=== PATIENT | female | born 1960 | race Caucasian/White ===

== ENCOUNTER → 2016-02-25 | Outpatient (CLI) | payer OTHER | LOC: YCFC.O 10:17 | PROVIDERS: ATTEND Nurse Practitioner Family | DX: I10 Essential (primary) hypertension (principal); E78.2 Mixed hyperlipidemia; K21.9 Gastro-esophageal reflux disease without esophagitis ==

== ENCOUNTER → 2016-03-06 | Outpatient (CLI) | payer OTHER ==
--- NOTE | 2016-03-06 13:15 | RAD ---
EXAM DESCRIPTION: XR CHEST 2 VIEWS CLINICAL HISTORY: 55 y/o F, SOB, FEVER, COUGH COMPARISON: 2012. FINDINGS: PA and lateral views are obtained. Normal cardiomediastinal contour. No pulmonary infiltrate or effusion. Mild diffuse osteopenia with degenerative changes thoracic spine. Surgical changes upper abdomen. IMPRESSION: No active process in the chest. Electronically signed by: Tracy Payne 03/06/2016 13:13
== END ==
LOC: RAD 10:51
PROVIDERS: ATTEND Nurse Practitioner Family
DX: R06.00 Dyspnea, unspecified (principal); R50.9 Fever, unspecified; R05 Cough

== ENCOUNTER → 2016-05-23 | Outpatient (CLI) | payer OTHER ==
--- NOTE | 2016-05-24 14:08 | RAD ---
EXAM DESCRIPTION: Lumbar Spine 5 Views CLINICAL HISTORY: RADICULOPATHY COMPARISON: None. TECHNIQUE: AP Lateral images lumbar spine. Lateral oblique images Spot-lateral radiograph of the lumbar sacral junction. FINDINGS: Lumbar type vertebra: Five. Transitional vertebrae: None. Disk spaces: Narrowing L5-S1 and endplate ridging. Facet joints: Degenerative changes bilateral L5-S1. Compression deformities: None. Bone Density: Moderately decreased. Alignment: Grade 1 anterolisthesis L5-S1. Oblique: Spondylolysis left L5 pars. Abdomen: Constipation. No gas-filled distended loops. IMPRESSION: Overall bone density is moderately decreased but no compression deformities of the vertebral bodies. Left L5 pars spondylolysis. Grade 1 anterolisthesis L5-S1 with spondylosis of the endplates.. Electronically signed by: Nehemias Joy MD 05/24/2016 2:07 PM CDT
== END | disposition home or self-care (01) ==
LOC: RAD 10:49
PROVIDERS: ATTEND Nurse Practitioner Family
DX: M54.17 Radiculopathy, lumbosacral region (principal)

== ENCOUNTER 2016-06-20 10:39 | Emergency (ER) | payer OTHER ==
[2016-06-20 10:52] VITALS: TEMP 98.2
[2016-06-20] MEDS ORDERED: CYCLOBENZAPRINE HCL 5 MG TAB PO ONE (10:58)
--- NOTE | 2016-06-20 11:02 | ED.PDOC ---
History of Present Illness - General Chief Complaint: Back Pain or Injury Stated Complaint: back pain Time Seen by Provider: 06/20/16 10:49 Source: patient, RN notes reviewed, Vital Signs reviewed - History of Present Illness Initial Comments: Patient reports that yesterday she was going up 2 steps into her living room when her L knee gave out and she fell backwards landing on her back on a bunch of toys. Her helped her to her bed and she just laid in bed all day yesterday due to the pain. She took some arthritis medication yesterday but nothing today. No numbness, tingling or weakness. Pain is in her mid, right back that is worse with movement. Timing/Duration: 7-24 hours Quality/Severity: moderate, sharpness Back Pain Location: T-spine, paraspinous muscles Back Pain Radiation: other - None Method of Injury/Prior Injury: fell Improving Factors: rest Worsening Factors: movement Associated Symptoms: muscle spasms Allergies/Adverse Reactions: Allergies Latex Allergy (Unverified 02/10/13 08:24) Home Medications: Ambulatory Orders Aspirin [Aspirin 81] 81 mg PO DAILY 02/07/13 Duloxetine HCl [Cymbalta] 60 mg PO BID 02/07/13 Famotidine 20 mg PO BID 02/07/13 Lisinopril 20 mg PO DAILY 02/07/13 Zolpidem Tartrate 10 mg PO DAILY 02/07/13 cloNAZepam [Klonopin] 0.5 mg PO BID 02/07/13 Acetaminophen W/ Codeine [Tylenol W/ CODEINE #3] 1 ea PO Q6HR PRN #20 06/20/16 Amoxicillin [Amoxil] 500 mg PO Q8H 06/20/16 Atorvastatin Calcium [Lipitor] 80 mg PO DAILY 06/20/16 Cyclobenzaprine HCl [Flexeril] 5 mg PO Q8HR #15 tab 06/20/16 Misc. Devices [Walker/Adult/Folding/Doub] 1 mis XX DAILY #1 mis 06/20/16 Potassium Chloride [K-Tab] 8 meq PO BEDTIME 06/20/16 Review of Systems - Review of Systems Constitutional: States: no symptoms reported Respiratory: States: no symptoms reported Cardiology: States: no symptoms reported Gastrointestinal/Abdominal: States: no symptoms reported. Denies: diarrhea, nausea, vomiting Genitourinary: States: no symptoms reported. Denies: hematuria, pain Musculoskeletal: States: back pain, muscle pain. Denies: neck pain Skin: States: no symptoms reported Neurological: States: no symptoms reported, pre-existing deficit. Denies: headache, numbness, paresthesia, tingling, tremors, weakness Past Medical History (General) - Patient Medical History Hx Stroke: Yes Hx Congestive Heart Failure: No Hx Diabetes: No Surgical History: cholecystectomy, Hysterectomy - Vaccination History Hx Influenza Vaccination: No Hx Pneumococcal Vaccination: No - Social History Hx Tobacco Use: Yes Family Medical History - Family History Mother Family History: Unknown Living Status: Unknown Physical Exam - Physical Exam General Appearance: Alert, No apparent distress, Well Developed, Well Groomed, Well Hydrated, Well Nourished, Other - uncomfortable Neck Exam: full range of motion Peripheral Pulses: dorsalis pedis,right: 2+, dorsalis pedis,left: 2+ Back Exam: no CVA tenderness, muscle spasm - R mid back, vertebral tenderness - mid thoracic Extremity Exam: no evidence of injury, normal range of motion, non-tender, no pedal edema Neurologic: no motor/sensory deficits, alert, normal mood/affect, oriented x 3 Skin Exam: normal color, warm/dry Progress - Progress Progress: 06/20/16 14:20 Patient with acute L1 compression fracture. Discussed with Dr. Isaac. Will d/c home with walker and pain medications. She has been comfortable here since receiving [place] and Flexeril. Discussed with patient and she agrees with plan. - EKG/XRAY/CT XRAY: T spine: ? new L1 compression fx. Will get CT CT Ordered: Yes - acute L1 compression fracture Departure - Departure Clinical Impression: Closed compression fracture of first lumbar vertebra Time of Disposition: 14:24 Disposition: Discharge to Home or Self Care Condition: Fair Departure Forms: ED Discharge - Pt. Copy, Patient Portal Self Enrollment Instructions: Vertebral Compression Fracture Diet: resume usual diet Activity: ambulate only with walker Referrals: Kymberly Sibley FNP [Primary Care Provider] - 1-2 Weeks Medhat Isaac MD [Active Staff] - 1-2 Weeks Prescriptions: Acetaminophen W/ Codeine [Tylenol W/ CODEINE #3] 1 ea PO Q6HR PRN #20 PRN Reason: Moderate To Severe Pain Cyclobenzaprine HCl [Flexeril] 5 mg PO Q8HR #15 tab Misc. Devices [Walker/Adult/Folding/Doub] 1 mis XX DAILY #1 mis Home Medications: Ambulatory Orders Aspirin [Aspirin 81] 81 mg PO DAILY 02/07/13 Duloxetine HCl [Cymbalta] 60 mg PO BID 02/07/13 Famotidine 20 mg PO BID 02/07/13 Lisinopril 20 mg PO DAILY 02/07/13 Zolpidem Tartrate 10 mg PO DAILY 02/07/13 cloNAZepam [Klonopin] 0.5 mg PO BID 02/07/13 Acetaminophen W/ Codeine [Tylenol W/ CODEINE #3] 1 ea PO Q6HR PRN #20 06/20/16 Amoxicillin [Amoxil] 500 mg PO Q8H 06/20/16 Atorvastatin Calcium [Lipitor] 80 mg PO DAILY 06/20/16 Cyclobenzaprine HCl [Flexeril] 5 mg PO Q8HR #15 tab 06/20/16 Misc. Devices [Walker/Adult/Folding/Doub] 1 mis XX DAILY #1 mis 06/20/16 Potassium Chloride [K-Tab] 8 meq PO BEDTIME 06/20/16
[2016-06-20] MEDS ORDERED: ONDANSETRON ODT 8 MG TAB SL ONE (11:27)
--- NOTE | 2016-06-20 11:31 | RAD ---
EXAM DESCRIPTION: Thoracic Spine,AP Lateral CLINICAL HISTORY: 55 years Female, Pain s/p fall yesterdat COMPARISON: Lumbar spine series May 23, 2016 FINDINGS: 3 views of the thoracic spine show prominent anterior compression of a single vertebral body near the thoracal lumbar junction, probably L1. This is new from May 23, 2016. Mild degenerative changes are noted at multiple levels in the thoracic spine, but no additional compression deformity is seen. There is no posterior rib fracture. IMPRESSION: Compression deformity of a single vertebral body near the thoracolumbar junction, probably L1. This is new from May 23, 2016. If clinically suspicious of acute compression fracture, CT or MRI is suggested. Electronically signed by: Nabil Durant MD 06/20/2016 11:30 AM CDT
[2016-06-20] MEDS ORDERED: HYDROcodone 7.5MG/APAP 325MG 1 EA TAB PO ONE (11:39)
--- NOTE | 2016-06-20 12:14 | CT ---
EXAM DESCRIPTION: Lumbar Spine CLINICAL HISTORY: ? new compression fx L1 on x-ray COMPARISON: May 23, 2016 TECHNIQUE: CT of the lumbar spine was performed without contrast. Multiple axial images and multiplanar reconstructions were generated. This exam was performed according to our department minimal dose optimization program which includes automated exposure control, adjustment of mA and/or kV according to patient size and/or use of iterative reconstructed techniques. FINDINGS: When compared to the plain film from May 2016 there is been interval development of a moderate compression fracture of L1. The fracture line extends through both the superior and inferior endplates in the coronal plane. There is minimal retropulsion of the posterior superior corner of L1 into the spinal canal. The AP diameter of the spinal canal at this level is adequate at 12 mm. The vertebral body heights from L2 through L5 are unremarkable. There is no spinal canal narrowing at any level. There is no neuroforaminal narrowing at any level. No aneurysm of the abdominal aorta. Patient is status post cholecystectomy. IMPRESSION: 1. Today's exam demonstrates an acute moderate compression fracture of L1 with retropulsion into the spinal canal. The retropulsed superior posterior corner of L1 decreases the AP diameter of the spinal canal to an unremarkable 12 mm. 2. No spinal canal narrowing or neuroforaminal narrowing at any level on today's exam. Electronically signed by: Manuel Monroy MD 06/20/2016 12:13 PM CDT
[2016-06-20 14:05] VITALS: BP 145/60
[2016-06-20 15:33] VITALS: O2SAT 95
== END 2016-06-20 15:05 | disposition home or self-care (01) ==
LOC: ER 10:39
DX: S32.019A Unspecified fracture of first lumbar vertebra, initial encounter for closed fracture (principal); Z91.040 Latex allergy status; Z79.82 Long term (current) use of aspirin; Z79.899 Other long term (current) drug therapy; Z87.891 Personal history of nicotine dependence; Z86.73 Personal history of transient ischemic attack (TIA), and cerebral infarction without residual deficits; W10.9XXA Fall (on) (from) unspecified stairs and steps, initial encounter; Y92.008 Other place in unspecified non-institutional (private) residence as the place of occurrence of the external cause

== ENCOUNTER → 2016-12-01 | Outpatient (CLI) | payer OTHER ==
--- NOTE | 2016-12-02 10:14 | MRI ---
EXAM DESCRIPTION: Lumbar Spine w/o Contrast CLINICAL HISTORY: FRACTURE COMPARISON: CT scan lumbar spine 06/20/2016. TECHNIQUE: Multiplanar, multiple standard sequences, non contrast MRI, lumbar spine. FINDINGS: Compression fracture has progressed at L1 greater than 75% centrally. Edema diffusely in the vertebral body extending into the bilateral pedicles. Anteropulsion of the anterior vertebral body. Posterior retropulsion 6 mm abutting the cord just above the conus which terminates at L1 -2. Moderate canal narrowing. Bilateral T12-L1 foramina are patent, minimal desiccation of the disc which is expanding into the vertebral body defect. No canal stenosis at this interspace. L1-2 disc with minimal desiccation. Tiny posterior bulge. Posterior elements unremarkable. Canal and foramina are patent. L5-S1: Disc desiccation. Disc space maintained. Tiny posterior bulge. Minimal hypertrophic changes of the bilateral facets. Trace anterolisthesis. Mild bilateral foraminal narrowing, more on the right. Canal is patent. Modic type II anterior inferior L5 endplate reaction, and the right side disc space endplates. L4-5: Disc space is maintained. Minimal desiccation. Bilateral foramina are patent. Minimal hypertrophy of the flavum ligaments. Canal is patent. Anterior well-circumscribed lesion L4 vertebral body right T1 and T2 sequences. L3-4: Disc space maintained. Minimal desiccation. Trace posterior bulge. Posterior elements unremarkable. Canal and foramina are patent. L2-3: Disc space maintained. Minimal disc desiccation. Posterior midline and left paracentral 4 mm bulge with no impingement. Bilateral foramina are patent. Anterior superior L3 endplate Modic type II reaction. Minimal hypertrophy of the flavum ligaments and facets. Mild canal narrowing. Paravertebral soft tissues show muscle atrophy with no mass.. Normal marrow signal in the remaining vertebral bodies and the posterior elements. Vertebral bodies are not compressed at any level. IMPRESSION: 1. L1 compression fracture has progressed now greater than 75% centrally. Marrow edema throughout the vertebral body and in the bilateral pedicles with no posterior instability. Retropulsion into the canal of the upper mid vertebral body cortex has increased to 6 mm, abutting the cord just above the conus. No compression. 2. Desiccation of discs at multiple levels with no significant bulging or herniation. No canal or foraminal stenosis at other levels. 3. Spondylosis at multiple levels. 4. Anterior L4 vertebral body hemangioma stable since the CT scan. CRITICAL COMMUNICATION: The critical value was discussed directly by phone with MICHAEL Busch, at approximately 1005 hours, on December 02, 2016. Electronically signed by: Nehemias Joy MD 12/02/2016 10:12 AM CDT
== END ==
LOC: MRI 17:09
PROVIDERS: ATTEND Nurse Practitioner Family
DX: M48.56XA Collapsed vertebra, not elsewhere classified, lumbar region, initial encounter for fracture (principal); M47.9 Spondylosis, unspecified; D18.09 Hemangioma of other sites

== ENCOUNTER → 2017-04-15 | Outpatient (CLI) | payer OTHER ==
--- NOTE | 2017-04-16 08:41 | MRI ---
EXAM DESCRIPTION: Lumbar Spine w/o Contrast MRI. CLINICAL HISTORY: COMPRESSION FX OF FIRST LUMBAR VERTEBRA WITH DELAYED HEALING COMPARISON: Lumbar spine 12/01/2016. TECHNIQUE: Multiplanar, multiple standard sequences, non contrast MRI, lumbar spine. FINDINGS: L1 compression fracture again noted with edema-like signal in the bilateral pedicles. Retropulsion of the superior endplate almost 5 mm abutting the distal cord which terminates at L1-L2. Anterior portion almost 6 mm. The compression centrally is approximately 75 %. Desiccation of the T12-L1 disc but no bulging. Bilateral foramina are patent. L1-2 disc desiccation with no significant bulging. Bilateral foramina are patent. No significant canal narrowing. L5-S1: Minimal disc desiccation with no bulging. Moderate right foraminal narrowing. Anterior Modic type II endplate reactive changes on the inferior L5 endplate. Facets and flavum ligaments are unremarkable. L4-5: Minimal disc desiccation. No significant bulging. Canal and foramina are patent. Minimal flavum ligament hypertrophy, facets negative. Well-circumscribed bright T1 and T2 signal in the anterior L4 vertebral body stable since the prior study. L3-4: Minimal disc desiccation. No significant bulging. Canal and foramina are patent. Flavum ligaments and facets are negative. L2-3: Modic type II endplate reactive changes superior L3 endplate are stable. Minimal disc desiccation. Tiny posterior broad-based bulge. Flavum ligament hypertrophy. Mild canal narrowing. Facets are negative. Bilateral foramina are patent. Modic type I endplate reactive changes anterior T11-12 endplates with disc desiccation but no disc bulging. Canal and bilateral foramina are patent. Paravertebral soft tissues show muscle atrophy. Normal marrow signal in the remaining vertebral bodies and the posterior elements. Remaining vertebral bodies are not compressed. IMPRESSION: 1. Central compression again noted at L1 with some islam of central vertebral body height compared to the prior study. Marrow edema is still noted in the bilateral pedicles. Retropulsion and anteropulsion of the vertebral body elements is unchanged. The vertebral body is abutting the cord but there is no impingement or compression. No cord edema. 2. Remaining discs and disc spaces are stable since the prior study. No canal or foraminal stenosis at other levels. Endplate changes of spondylosis and vertebral body hemangiomas are again noted. 3. Tiny posterior L2-3 disc bulge is stable since the prior study. Electronically signed by: Nehemias Joy MD 04/16/2017 8:40 AM [facility]
== END ==
LOC: MRI 11:00
DX: S32.010G Wedge compression fracture of first lumbar vertebra, subsequent encounter for fracture with delayed healing (principal)

== ENCOUNTER → 2017-05-19 | Outpatient (CLI) | payer OTHER | END | disposition home or self-care (01) | LOC: YCFC.O 11:53 | PROVIDERS: ATTEND Nurse Practitioner Family | DX: I10 Essential (primary) hypertension (principal); E78.5 Hyperlipidemia, unspecified; R73.01 Impaired fasting glucose ==

== ENCOUNTER 2017-06-22 11:37 | Emergency (ER) | payer OTHER ==
--- NOTE | 2017-06-22 12:04 | ED.PDOC ---
History of Present Illness - General Chief Complaint: Skin/Abrasion/Tear Time Seen by Provider: 06/22/17 11:43 Source: patient Exam Limitations: no limitations - History of Present Illness Initial Comments: The patient is a 56-year-old female presenting to the emergency room secondary to increasing headaches over the last couple of days as well as a knot to her left posterior occipital area present for the last couple of days as well. Additionally she has been checking her blood pressures frequently and her blood pressures have been going up. She is very anxious about that and does suffer from significant anxiety issues. Blood pressure upon arrival here is 140/82. She is alert and oriented and in no real distress. She is mildly anxious. The swelling over the left occipital posterior area appears to be a swollen lymph node The pattern of the headache is consistent with a tension headache likely related to this area. I do not see any definite source of any infection. She does have poor dentition and she does smoke. Lungs are actually clear at this point. Timing/Duration: unsure Severity: moderate Improving Factors: nothing Worsening Factors: nothing Associated Symptoms: denies symptoms Allergies/Adverse Reactions: Allergies Latex Allergy (Unverified 02/10/13 08:24) Home Medications: Ambulatory Orders Aspirin [Aspirin 81] 81 mg PO DAILY 02/07/13 Duloxetine HCl [Cymbalta] 60 mg PO BID 02/07/13 Famotidine 20 mg PO BID 02/07/13 Lisinopril 20 mg PO DAILY 02/07/13 Zolpidem Tartrate 10 mg PO DAILY 02/07/13 cloNAZepam [Klonopin] 0.5 mg PO BID 02/07/13 Acetaminophen W/ Codeine [Tylenol W/ CODEINE #3] 1 ea PO Q6HR PRN #20 06/20/16 Amoxicillin [Amoxil] 500 mg PO Q8H 06/20/16 Atorvastatin Calcium [Lipitor] 80 mg PO DAILY 06/20/16 Cyclobenzaprine HCl [Flexeril] 5 mg PO Q8HR #15 tab 06/20/16 Misc. Devices [Walker/Adult/Folding/Doub] 1 mis XX DAILY #1 mis 06/20/16 Potassium Chloride [K-Tab] 8 meq PO BEDTIME 06/20/16 Review of Systems - Review of Systems Constitutional: States: no symptoms reported EENTM: States: no symptoms reported Respiratory: States: no symptoms reported Cardiology: States: no symptoms reported Gastrointestinal/Abdominal: States: no symptoms reported Genitourinary: States: no symptoms reported Musculoskeletal: States: see HPI Skin: States: no symptoms reported Neurological: States: anxiety Endocrine: States: no symptoms reported Hematologic/Lymphatic: States: swollen glands All other Systems: No Change from Baseline Past Medical History (General) - Patient Medical History Hx Stroke: Yes Hx Congestive Heart Failure: No Hx Diabetes: No - Vaccination History Hx Influenza Vaccination: No Hx Pneumococcal Vaccination: No - Social History Hx Tobacco Use: Yes Family Medical History - Family History Mother Family History: Unknown Living Status: Unknown Physical Exam - Physical Exam General Appearance: Alert, Anxious, No apparent distress Eye Exam: bilateral normal Ears, Nose, Throat: hearing grossly normal, normal ENT inspection, normal pharynx - poor dentition Neck: full range of motion, supple, other - mild tenderness over the swollen lymphadenopathyapproximately over the left side of the atlantooccipital area Respiratory: lungs clear, normal breath sounds, no respiratory distress, no accessory muscle use Cardiovascular/Chest: normal peripheral pulses, regular rate, rhythm, no edema Peripheral Pulses: radial,right: 2+, radial,left: 2+, dorsalis pedis,right: 2+, dorsalis pedis,left: 2+ Gastrointestinal/Abdominal: non tender, soft Rectal Exam: deferred Back Exam: no CVA tenderness Extremity: normal range of motion, non-tender, normal inspection, no pedal edema , normal capillary refill Neurologic: rn placement II-XII nml as tested, alert, normal mood/affect, oriented x 3 Skin Exam: normal color Lymphatic: other - see above Progress - Progress Progress: 06/22/17 12:05 the patient's a 56-year-old female presenting to the emergency room secondary to what appears to be left posterior upper cervical lymphadenopathy present for the last couple of days with an associated tension headache and resultant mild hypertension. I do not see any definitive source to target with antibiotics at this time. The patient is being given 1 dose of oral prednisone to help maybe reduce the size and irritation of the swollen lymph node. She'll follow-up with her primary care doctor towards the end of the week for reevaluation. Blood pressure was adequately controlled here today. She needs to keep herself well-hydrated. She needs to do stretching exercises for her cervical spine as well as topical heat may help reduce discomfort from the lymphadenopathy. ER warnings were given for any acute worsening. Departure - Departure Clinical Impression: Posterior cervical lymphadenopathy Disposition: Discharge to Home or Self Care Condition: Fair Departure Forms: ED Discharge - Pt. Copy, Patient Portal Self Enrollment Instructions: DI for Lymphadenopathy Diet: regular diet Activity: increase activity as tolerated Referrals: Kymberly Sibley, [employer] [Primary Care Provider] - 1-2 Weeks Home Medications: Ambulatory Orders Aspirin [Aspirin 81] 81 mg PO DAILY 02/07/13 Duloxetine HCl [Cymbalta] 60 mg PO BID 02/07/13 Famotidine 20 mg PO BID 02/07/13 Lisinopril 20 mg PO DAILY 02/07/13 Zolpidem Tartrate 10 mg PO DAILY 02/07/13 cloNAZepam [Klonopin] 0.5 mg PO BID 02/07/13 Acetaminophen W/ Codeine [Tylenol W/ CODEINE #3] 1 ea PO Q6HR PRN #20 06/20/16 Amoxicillin [Amoxil] 500 mg PO Q8H 06/20/16 Atorvastatin Calcium [Lipitor] 80 mg PO DAILY 06/20/16 Cyclobenzaprine HCl [Flexeril] 5 mg PO Q8HR #15 tab 06/20/16 Misc. Devices [Walker/Adult/Folding/Doub] 1 mis XX DAILY #1 mis 06/20/16 Potassium Chloride [K-Tab] 8 meq PO BEDTIME 06/20/16 Additional Instructions: the patient's a 56-year-old female presenting to the emergency room secondary to what appears to be left posterior upper cervical lymphadenopathy present for the last couple of days with an associated tension headache and resultant mild hypertension. I do not see any definitive source to target with antibiotics at this time. The patient is being given 1 dose of oral prednisone to help maybe reduce the size and irritation of the swollen lymph node. She'll follow-up with her primary care doctor towards the end of the week for reevaluation. Blood pressure was adequately controlled here today. She needs to keep herself well-hydrated. She needs to do stretching exercises for her cervical spine as well as topical heat may help reduce discomfort from the lymphadenopathy. ER warnings were given for any acute worsening.
[2017-06-22 12:38] VITALS: TEMP 97.9
[2017-06-22] MEDS: predniSONE 20 MG TAB PO ONE (12:39)
[2017-06-22 12:42] VITALS: BP 138/92; O2SAT 96
== END 2017-06-22 12:45 | disposition home or self-care (01) ==
LOC: ER 11:37
DX: R59.0 Localized enlarged lymph nodes (principal); G44.209 Tension-type headache, unspecified, not intractable; Z86.73 Personal history of transient ischemic attack (TIA), and cerebral infarction without residual deficits; Z79.82 Long term (current) use of aspirin; Z87.891 Personal history of nicotine dependence

== ENCOUNTER → 2017-11-19 | Outpatient (CLI) | payer OTHER | LOC: YCFC.O 08:48 | PROVIDERS: ATTEND Nurse Practitioner Family | DX: I10 Essential (primary) hypertension (principal); E78.5 Hyperlipidemia, unspecified ==

== ENCOUNTER → 2017-12-24 | Outpatient (CLI) | payer OTHER ==
--- NOTE | 2017-12-25 15:37 | MAM ---
EXAM DESCRIPTION: 3D Screening BILATERAL : Digital Mammography. CLINICAL HISTORY: 57 years Female SCREENING . No complaints or personal history of breast cancer. Remote family history of breast cancer. Childbirth. Postmenopausal 23 years. Hormone replacement 5 or more years ago. Lifetime risk of developing breast cancer (Tyrer-Cuzick model)(%): 7.5. COMPARISON: prior. No prior reports available. TECHNIQUE: Bilateral CC and MLO projection full-field images, digital tomosynthesis mammographic technique. Bilateral digital 2-D full-field MLO images. CAD not available for tomosynthesis or 2-D images. FINDINGS: The breast parenchymal density pattern is: Almost entirely fatty. No skin thickening or nipple retraction. Bilateral few scattered solitary microcalcifications. Focal asymmetry in the posterior third of the upper inner quadrant of the left breast near the pectoral muscle, 1100 clock position. No focal, stellate mass or density, focal asymmetry , and no suspicious microcalcifications right breast. Taking into account, differences in mammographic technique. IMPRESSION: BI-RADS CATEGORY: 0 - INCOMPLETE- Need additional imaging evaluation. FOLLOW-UP: Recall for additional imaging: Targeted left breast ultrasound of the region of interest. Diagnostic digital mammography if indicated following ultrasound examination.. Written communication concerning the IMPRESSION and Follow-up, will be mailed to the patient and referring health care provider. Electronically signed by: Nehemias Joy MD 12/25/2017 3:36 PM [employer]
== END ==
LOC: MAMMO 11:30
PROVIDERS: ATTEND Nurse Practitioner Family
DX: Z12.31 Encounter for screening mammogram for malignant neoplasm of breast (principal)

== ENCOUNTER → 2017-12-31 | Outpatient (CLI) | payer OTHER ==
--- NOTE | 2018-01-01 16:59 | US ---
EXAM DESCRIPTION: Breast,Left: Ultrasound CLINICAL HISTORY: 57 [id number] ABNORMAL SCREENING focal asymmetry in the posterior upper inner quadrant of the left breast. COMPARISON: Digital screening tomosynthesis bilateral breasts 12/24/2017. TECHNIQUE: Transcutaneous scanning of the left breast utilizing palma-scale and Doppler modes. Scanning performed by the egg grader ; observation by Dr. Joy. FINDINGS: Scanning of the upper posterior left breast from the 11:00 to 1:00. Mostly fatty echotexture with minimal fibroglandular echotexture. No dominant distinct solid mass or cyst. No parenchymal edema or large calcifications. No overlying skin changes. Normal vascularity. IMPRESSION: Benign exam. BIRAD CATEGORY: 2 BENIGN FINDINGS. RECOMMENDATIONS: FOLLOW UP: Return to routine digital bilateral mammographic screening, one year interval from December 2017. The FINDINGS and the FOLLOW-UP plan were reviewed in person with the patient after the examination. Written communication explaining the IMPRESSION and FOLLOW-UP will be mailed to the patient and referring care provider. According to the [employer], yearly mammograms are recommended starting at age 40 and continuing as long as a woman is in good health. Any breast change noted on a breast self-exam should be reported promptly to the patient's healthcare provider. Breast MRI is recommended for women with an approximately 20-25% or greater lifetime risk of breast cancer, including women with a strong family history of breast or ovarian cancer and women who have been treated for Hodgkin's disease. A negative mammographic report should not delay tissue diagnosis in patients with significant clinical history or physical findings. Extremely dense breast tissue limits the sensitivity of digital mammography. Electronically signed by: Nehemias Joy MD 01/01/2018 4:58 PM [facility]
== END ==
LOC: US 10:30
PROVIDERS: ATTEND Nurse Practitioner Family
DX: R92.8 Other abnormal and inconclusive findings on diagnostic imaging of breast (principal)

== ENCOUNTER → 2018-11-12 | Outpatient (CLI) | payer OTHER | LOC: YCFC.O 11:07 | PROVIDERS: ATTEND Nurse Practitioner Family | DX: I10 Essential (primary) hypertension (principal); E78.5 Hyperlipidemia, unspecified ==

== ENCOUNTER → 2018-12-06 | Outpatient (CLI) | payer OTHER ==
--- NOTE | 2018-12-06 17:51 | CT ---
Procedure: CT LUNG SCREENING Exam Date: 12/06/2018 Ordering Provider: Vishal Lam Clinical Indication: ANNUAL SCREENING . Current cigarette smoker. 23 pack years. This patient meets eligibility criteria for low-dose CT lung cancer screening. Comparison: Chest x-ray February 2016 Technique: Using a multislice scanner, sequential helical axial imaging was obtained in the thorax, 2.5 mm thickness, 2.5 mm separation, from the level of the thoracic inlet through the lung bases without IV contrast. A low dose protocol was utilized for BMI greater than 30: BMI: 36.1. CTDI: 2.92 mGy. 120. kVp. 75 mA. DLP: 107.1 mGy-centimeters. 2D sagittal and coronal reconstructed images, 6.0 mm thickness, were obtained. This exam was performed according to our departmental dose optimization program which includes use of automated exposure control, adjustment of the mA and/or kV according to patient size and/or use of iterative reconstruction technique. Nodule measurements under 10 mm are given as mean value of 3 axes diameters. FINDINGS: Lungs and large airways: Minimal perihilar peribronchial wall cuffing. Pleural parenchymal scarring in the inferior lingula, left lower lobe and right lower lobe in the posterior recess. No abnormal nodules or masses. No focal infiltrates. Pleura and space: Negative. Mediastinum and danielito: evaluation limited by low dose technique and lack of IV contrast. Unremarkable. Heart and great vessels: Minimal atherosclerotic calcifications in the included brachiocephalic vessels, aortic arch, and coronary vessels. Chest wall, lower neck, axillae: Evaluation also limited by same factors as described above. Significant enlargement of the left lobe of the thyroid gland which extends posteriorly and inferiorly. Extensions to the level of the left thoracic inlet. Indeterminate 1.5 cm nodule inferior left thyroid. Upper abdomen: Evaluation limited by low-dose technique. No free air or free fluid. Normal size and density of the adrenal glands and spleen. Surgical clips gallbladder fossa with no fluid. Osseous structures: Evaluation limited by low dose MIP technique. Spondylosis thoracic spine. Compression fracture and vertebral body augmentation L1. Bilateral shoulder arthrosis more on the right. IMPRESSION: 1. No abnormal nodules and no masses. No acute infiltrate. Chronic changes in the lungs bilaterally.. [facility] Best Practice Recommendations: please see below for Lung RADS category and FOLLOW-UP.* *Lung RADS category Category 1S - No nodule or definitely benign nodules (probability of malignancy less than 1%). Follow-up: Continue annual screening with Low Dose Chest CT in 12 months. 2. Lung RADS Modifier S - Clinically Significant or Potentially Clinically Significant Findings (non lung cancer). Enlargement of the left lobe of the thyroid gland with calcifications and indeterminate nodule at least 1.5 cm diameter. [facility] Best Practice recommendations: 1.5 cm incidental thyroid nodule. Recommend thyroid US. Reference: J Am Tosin Radiol. 2015 Mar;12(2): 143-50. 3. Patient enrolled in mammographic breast screening program at this facility. One year follow-up due in December 2018. Electronically signed by: Nehemias Joy MD 12/06/2018 5:49 PM CDT
== END ==
LOC: CT 12:39
PROVIDERS: ATTEND Family Medicine
DX: Z87.891 Personal history of nicotine dependence (principal)

== ENCOUNTER → 2019-01-05 | Outpatient (CLI) | payer OTHER ==
--- NOTE | 2019-01-06 15:31 | US ---
US THYROID CLINICAL STATEMENT: Enlarged left thyroid lobe with calcifications, possibly macro nodule, low-dose CT lung screening examination.. COMPARISON.: Low-dose CT lung cancer screening examination November. TECHNIQUE: Transcutaneous scanning, grayscale and Doppler modes. FINDINGS: Size right thyroid lobe: 3.1 x 1.9 x 1.4 cm Size left thyroid lobe: 4.8 x 2.8 x 2.4 cm Size isthmus: 0.24 cm Estimated total number of nodules greater than or equal to 1 cm: 3. Gland is heterogeneous. Nodule 1: Size: 3.5 x 2.3 x 2.2 cm Location: Left Mid Composition: solid or almost completely solid: 2 points Echogenicity: hypoechoic: 2 points Shape: wider than tall: 0 points Margins: smooth: 0 points Echogenic foci: peripheral calcifications: 2 points ACR Total Points: 6; ACR TI-RADS risk category: TR4 - moderately suspicious nodule. Nodule 2: Size: 1.1 x 1.0 x 0.8 cm Location: Right Upper Composition: solid or almost completely solid: 2 points Echogenicity: hypoechoic: 2 points Shape: wider than tall: 0 points Margins: smooth: 0 points. Minimal displacement of the anterior capsule, just to the right of the isthmus. Echogenic foci: none: 0 points ACR Total Points: 4; ACR TI-RADS risk category: TR4 - moderately suspicious nodule. Nodule 3: Size: 1.0 x 0.9 x 0.9 cm Location: Right Lower Composition: solid or almost completely solid: 2 points Echogenicity: hypoechoic: 2 points Shape: taller than wide: 3 points Margins: ill-defined: 0 points Echogenic foci: macrocalcifications: 1 point ACR Total Points: >/= 7; ACR TI-RADS risk category: TR5 - highly suspicious nodule. Nodule 4: Size: 0.9 x 0.9 x 0.4 cm Location: Right Mid Composition: solid or almost completely solid: 2 points Echogenicity: isoechoic: 1 point Shape: wider than tall: 0 points Margins: smooth: 0 points Echogenic foci: none: 0 points ACR Total Points: 3; ACR TI-RADS risk category: TR3 - mildly suspicious nodule. The soft tissue around the thyroid gland shows no dominant solid mass or distinct cyst. No calcifications. IMPRESSION: 1. Nodule 1: ACR TI-RADS 2017 Category TR4. Recommend: Ultrasound-guided fine needle aspiration. Recommendations based upon [facility] Best Practice recommendations and ACR TI-RADS 2017 guidelines. Please see below*. 2. Nodule 2: ACR TI-RADS 2017 Category TR4. Recommend: Follow-up ultrasound in 1 year. 3. Nodule 3: ACR TI-RADS 2017 Category TR5. Recommend: Ultrasound-guided fine needle aspiration 4. Nodule 4: ACR TI-RADS 2017 Category TR3. Recommend: No further follow-up. Soft tissue around the thyroid gland is unremarkable. *ACR TI-RADS 2017 Recommendations for imaging follow-up of nodules: TR1: No FNA or follow up TR2: No FNA or follow up TR3: FNA if >/= 2.5 cm, follow up if 1.5 - 2.4 cm in 1, 3, and 5 years TR4: FNA if >/= 1.5 cm, follow up if 1.0 - 1.4 cm in 1, 2, 3, and 5 years TR5: FNA if >/= 1.0 cm, follow up if 0.5 - 0.9 cm every year for 5 years ACR TI-RADS recommends that no more than two nodules with the highest ACR TI-RADS total point should be biopsied and no more than four nodules should be followed. These recommendations do not apply to patients with increased risk for thyroid cancer or patients with symptomatic thyroid disease. Electronically signed by: Nehemias Joy MD 01/06/2019 3:29 PM [facility]
== END ==
LOC: US 13:30
PROVIDERS: ATTEND Nurse Practitioner
DX: E04.1 Nontoxic single thyroid nodule (principal)

== ENCOUNTER → 2019-02-22 | Outpatient (CLI) | payer OTHER ==
--- NOTE | 2019-02-22 16:37 | US ---
Thyroid Biopsy, Image-Guided: Ultrasound CLINICAL INFORMATION: Large left thyroid nodule seen on chest CT scan 06 December 2018. Ultrasound thyroid 05 January 2019. TECHNIQUE: Procedure was explained to the patient with risks and benefits. The patient gave verbal and written consent. Sterile preparation draping. 1% xylocaine dermal anesthetic 9-1 mixture with sodium bicarbonate. Sterile ultrasound guidance. A total of 6 passes into nodule right lower thyroid lobe.; 3 needle samplings with a separate 1.5 inch, 25-gauge needle per sample, and 3 aspirations, with a separate 1.5 inch, 25-gauge needle/10-cc syringe set, per aspiration. Each sample was placed on a separate slide and fixed in 95% alcohol container. Saccomanno fluid drawn into aspirate needle and rinse injected into Saccomanno container. Specimens to be sent for pathologic examination at remote facility. This technique was repeated with 6 passes: 3 needle samplings and 3 aspirations, for a nodule in the mid left lobe. Same procedure for fixing slides. Patient tolerated procedure well. Biopsy #: 1 Nodule reference number based on prior diagnostic ultrasound:3 Maximum size: 1.0 cm Location: right; lower ACR TI-RADS risk category: TR5 (>/= 7 points) Reason for biopsy: meets ACR TI-RADS criteria Biopsy #: 2 Nodule reference number based on prior diagnostic ultrasound:1 Maximum size: 3.5 cm Location: left; mid ACR TI-RADS risk category: TR4 (4-6 points) Reason for biopsy: meets ACR TI-RADS criteria Complications: None. IMPRESSION: Successful ultrasound guided fine needle aspiration of bilateral thyroid nodules.. ACR TI-RADS Risk Category TR 4 for nodule in the left lobe and ACR TI-RADS Risk Category TR 5 for nodule in the lower right lobe. Electronically signed by: Nehemias Joy MD 02/22/2019 4:35 PM [facility]
== END ==
LOC: US 10:30
PROVIDERS: ATTEND Nurse Practitioner
DX: E04.1 Nontoxic single thyroid nodule (principal)

== ENCOUNTER → 2019-04-14 | Outpatient (CLI) | payer OTHER | LOC: LAB.O 11:02 | PROVIDERS: ATTEND Family Medicine | DX: I10 Essential (primary) hypertension (principal); E04.2 Nontoxic multinodular goiter ==

== ENCOUNTER → 2019-08-01 | Outpatient (CLI) | payer OTHER | LOC: YCFC.O 09:18 | PROVIDERS: ATTEND Family Medicine | DX: I10 Essential (primary) hypertension (principal); E02 Subclinical iodine-deficiency hypothyroidism ==

== ENCOUNTER → 2019-09-30 | Outpatient (CLI) | payer OTHER | LOC: YCFC.O 11:21 | PROVIDERS: ATTEND Family Medicine | DX: E05.90 Thyrotoxicosis, unspecified without thyrotoxic crisis or storm (principal) ==